=== PATIENT | female | born 1985 | race Caucasian/White ===

== ENCOUNTER 2017-11-04 07:42 | Outpatient (CLI) | payer OTHER ==
--- NOTE | 2017-11-04 12:08 | MRI Report ---
EXAM: MRI LUMBAR SPINE WITHOUT CONTRAST EXAM DATE: 11/04/2017 08:39 AM. CLINICAL HISTORY: 32-year-old woman with chronic low back pain and new right leg pain. COMPARISON: MRI on 07/24/2015. TECHNIQUE: Multiplanar, multisequence T1-weighted and fluid-sensitive sequences of the lumbar spine f rom T12 to S1 without contrast. Other: None. FINDINGS: Spinal Cord: The conus terminates at T12-L1. Cauda equina nerve roots are normal in appearance. Alignment: No significant spondylolisthesis or scoliosis. Bone Marrow: Five [id number] lumbar vertebral bodies are present. No gross fractures or bone les ions. No bone marrow edema. Mild Modic type II chronic degenerative endplate changes are present at L 5-S1, left side worse than right, slightly progressed compared to that 2014 exam. Disk Levels/Facets: T12-L1: Unremarkable. L1-L2: Unremarkable. L2-L3: Unremarkable. L3-L4: Unremarkable. L4-L5: There is disk desiccation without significant height loss. Small broad-based disk bulge result s in mild narrowing of the central canal, not significantly changed. Facet hypertrophy results in mil d narrowing of the neural foramina bilaterally, right side worse and left, unchanged. L5-S1: There is disk desiccation and moderate height loss. Broad-based right paracentral disk extrusi on results in moderate to severe narrowing of the right lateral recess, new compared to the 2014 exam . The passing right S1 nerve roots may be compressed. Disk bulge also results in moderate narrowing o f the left lateral recess, possibly compromising the passing left S1 nerve roots and progressed vignesh red to the prior exam. No significant narrowing of the central canal overall. Facet hypertrophy and d isk osteophyte complex in the subarticular spaces result in mild to moderate narrowing of the neural foramina bilaterally, not significantly changed. Musculature: Normal. No edema or fatty atrophy. Other: The partially visualized retroperitoneum is unremarkable. IMPRESSION: 1. Degenerative disk changes in the lower lumbar spine with mild chronic bony end plate changes at L5 -S1, slightly progressed compared to the 07/24/2015 exam. 2. L5-S1: Broad-based disk extrusion results and moderate to severe narrowing of the right lateral re cess, new compared to 2015 exam. The passing right S1 nerve roots decompressed. Disk bulge also resul ts in moderate narrowing of the left lateral recess, progressed. The passing left S1 nerve roots may be compromised. Mild to moderate narrowing of the neural foramina bilaterally, unchanged. 3. L4-L5: Mild narrowing of the central canal, unchanged. Mild narrowing of the neural foramina bilat erally, right side worse and left, unchanged. Comment: The following findings are so common in adults without low back pain that while we report th eir presence, they must be interpreted with caution and in the context of the clinical situation. (Re ada Barclay et al, Spine 2001) Prevalence of findings in patients without low back pain: Disk degeneration (any evidence): 92% Disk desiccation/T2 signal loss: 83% Disk height loss: 56% Disk bulge: 64% Disk protrusion: 32% Annular tear/high intensity zone: 38% [facility] Referring Provider Line: [phone] SITE ID: [id number]
== END 2017-11-04 07:43 | disposition home or self-care (01) ==
LOC: DI 07:42
PROVIDERS: ATTEND Family Medicine
DX: M51.27 Other intervertebral disc displacement, lumbosacral region (principal); M51.36 Other intervertebral disc degeneration, lumbar region; M51.37 Other intervertebral disc degeneration, lumbosacral region; M47.896 Other spondylosis, lumbar region; M47.897 Other spondylosis, lumbosacral region
CPT/HCPCS: 72148

== ENCOUNTER 2017-12-18 07:14 | Emergency (ER) | payer OTHER ==
[2017-12-18] MEDS ORDERED: oxyCODONE 5 MG TABLET PO STA (07:31)
[2017-12-18] MEDS ORDERED: LIDOCAINE PATCH 5% TOP STA (07:31)
[2017-12-18] MEDS ORDERED: DEXAMETHASONE 10 MG/ML VIAL PO STA (07:31)
--- NOTE | 2017-12-18 07:34 | ED Physician Documentation ---
History of Present Illness - Stated complaint Stated Complaint: SCIATIC NERVE PX - Chief complaint Chief Complaint: Back Pain - Additonal information Additional information: hx from pt 32 f [place] injured her back while lifting having R leg sciaitica had MRI 1-2 m ago shoing HNP with R S1 nerve root compression and no cauda equina has referral to spine neuro next week on naproxen and flexeril at home pain is intolerable right now no fever no CP AP no cough no SOA numb to bottom R foot not else where n weakness no incont denies preg Review of Systems Constitutional: denies: Fever Cardiac: denies: Chest pain / pressure Respiratory: denies: Dyspnea GI: denies: Abdominal Pain, Nausea, Vomiting : denies: Incontinent, Now EGA Musculoskeletal: reports: Back pain, Extremity pain Neurologic: reports: Numbness. denies: Focal weakness Immunocompromised: denies: Immunocompromised PD PAST MEDICAL HISTORY - Past Medical History Past Medical History: Yes Musculoskeletal: Other - Past Surgical History Past Surgical History: No - Present Medications Home Medications: Ambulatory Orders Medication Instructions Recorded Confirmed Cyclobenzaprine [Flexeril] 12/18/17 Lidocaine Patch 5% [Lidoderm Patch] 1 each TOP DAILY PRN #10 patch 12/18/17 Oxycodone HCl/Acetaminophen 1 each PO Q6HR PRN #6 tablet 12/18/17 [Percocet 5-325 mg Tablet] predniSONE [Deltasone] 20 mg PO [id number] #21 tab 12/18/17 - Allergies Allergies/Adverse Reactions: Allergies Allergy/AdvReac Type Severity Reaction Status Date / Time No Known Drug Allergies Allergy Verified 12/18/17 07:20 - Social History Does the pt smoke?: No Smoking Status: Never smoker Does the pt drink ETOH?: No Does the pt have substance abuse?: No PD ED PE NORMAL - Vitals Vital signs reviewed: Yes - General General: Other (appears to be in sig pain) - Neck Neck: Supple, no meningeal sign - Cardiac Cardiac: RRR - Respiratory Respiratory: No respiratory distress, Clear bilaterally - Abdomen Abdomen: Soft, Non tender, Other (no pulsatile mass) - Back Back: Other (TTP low L spine no redness erythema or swelling, limited ROM) - Derm Derm: Normal color - Extremities Extremities: Other (slight dec sensation base right foot, otherwise intact, specifically denies saddle anesthesia, foot dorsi plantar and great toe etx 5/5 hip flex and knee ext limited by pain but intact, no ankle clonus, diff to elcit patellar reflexes due to severity of pain and pt resisting leg movement) Results - Vitals Vitals: Vital Signs - 24 hr 12/18/17 07:17 Temperature 36.7 C Heart Rate 98 Respiratory 16 Rate Blood Pressure 121/98 H O2 Saturation 99 Oxygen O2 Source Room air Departure - Departure Disposition: 01 Home, Self Care Clinical Impression: Sciatica Qualifiers: Laterality: right Qualified Code(s): M54.31 - Sciatica, right side Condition: Good Instructions: ED Sciatica Follow-Up: LENNY Long [Provider Group] Prescriptions: Oxycodone HCl/Acetaminophen [Percocet 5-325 mg Tablet] 1 each PO Q6HR PRN #6 tablet PRN Reason: Severe Pain Lidocaine Patch 5% [Lidoderm Patch] 1 each TOP DAILY PRN #10 patch PRN Reason: Pain predniSONE [Deltasone] 20 mg PO [id number] #21 tab Comments: The steroid (prednsione) will decrease the inflammation of the nerve and help relieve some of the pain. Do not take your naproxen while on the prednsione You can take the flexeril One lidocaine patch per day can be applied to the most painful stop and left on for up to 12 hr The percocet is a strong narcotic and is only to be used until the steroids take effect - narcotics can be addicting even when used for a short period of time so please limit your use as much as possible. No driving while on percocet. Follow up with your command for duty status - I recommend off work today and desk duty only after that until cleared by the neuro spine doctor you have been referred to
[2017-12-18 08:28] VITALS: BP 122/75
== END 2017-12-18 08:28 | disposition home or self-care (01) ==
LOC: ED 07:14
DX: M54.31 Sciatica, right side (principal)
CPT/HCPCS: 99283; A9270

== ENCOUNTER 2018-01-03 18:17 | Emergency (ER) | payer OTHER ==
[2018-01-03] MEDS ORDERED: MORPHINE 10 MG/ML VIAL IVP STA ×2 (18:45→19:50)
[2018-01-03] MEDS ORDERED: DEXAMETHASONE 10 MG/ML VIAL IVP STA (18:45)
[2018-01-03] MEDS ORDERED: KETOROLAC 60 MG/2 ML VIAL IVP STA (18:45)
[2018-01-03] MEDS ORDERED: diazePAM INJ 5 MG/ML SYRINGE IVP STA ×2 (18:46→19:50)
--- NOTE | 2018-01-03 18:48 | ED Physician Documentation ---
PD HPI BACK PAIN - Stated complaint Stated Complaint: R LEG PX - Chief complaint Chief Complaint: Back Pain - History obtained from History obtained from: Patient, Family - History of Present Illness Timing - onset: Chronic Timing - duration: Years (worse for past 3 days) Pain level max: 10 Pain level now: 10 Location: Lower, Right, Left Quality: Pain, Spasm, Sharp, Aching, Dull, Similar to prior episodes Associated symptoms: Numbness (chronic to plantar aspect of R foot.). No: Fever , Weakness, Incontinent of urine, Unable to urinate, Hematuria, Incontinent of stool, Other Improves with: Rest Worsened by: Movement, Twisting Contributing factors: Lifting (states herniated disc, had MRI 2 months ago, saw spine surgeon 1 week ago and is being referred for surgery.) Similar symptoms before: Diagnosis (sciatica) Review of Systems Constitutional: denies: Fever, Chills Nose: denies: Rhinorrhea / runny nose, Congestion Cardiac: denies: Chest pain / pressure Respiratory: denies: Cough GI: denies: Abdominal Pain, Nausea, Vomiting, Diarrhea : denies: Dysuria, Frequency, Hesitancy, Now EGA Musculoskeletal: denies: Neck pain Neurologic: denies: Focal weakness PD PAST MEDICAL HISTORY - Past Medical History Past Medical History: Yes Musculoskeletal: Chronic back pain, Other Other Past Medical History: L5-S1 bulging disc - Past Surgical History Past Surgical History: No - Present Medications Home Medications: Ambulatory Orders Medication Instructions Recorded Confirmed Cyclobenzaprine [Flexeril] 12/18/17 Lidocaine Patch 5% [Lidoderm Patch] 1 each TOP DAILY PRN #10 patch 12/18/17 Oxycodone HCl/Acetaminophen 1 each PO Q6HR PRN #6 tablet 12/18/17 [Percocet 5-325 mg Tablet] Diclofenac Epolamine [Flector] 1 each TD Q12H PRN #20 adh..patch 01/03/18 Gabapentin 900 mg PO TID 01/03/18 01/03/18 Methylprednisolone [Medrol] 4 mg PO DAILY #1 tab.ds.pk 01/03/18 Oxycodone HCl 10 mg PO Q6H PRN #14 tablet 01/03/18 diazePAM [Valium] 5 - 10 mg PO TID PRN #15 tablet 01/03/18 - Allergies Allergies/Adverse Reactions: Allergies Allergy/AdvReac Type Severity Reaction Status Date / Time No Known Drug Allergies Allergy Verified 01/03/18 18:23 - Social History Does the pt smoke?: No Smoking Status: Never smoker Does the pt drink ETOH?: No Does the pt have substance abuse?: No - Immunizations Immunizations are current?: Yes PD ED PE NORMAL - Vitals Vital signs reviewed: Yes - General General: Alert and oriented X 3, Well developed/nourished, Other (appears in significant pain. crying) - HEENT HEENT: PERRL, Moist mucous membranes - Neck Neck: Supple, no meningeal sign - Cardiac Cardiac: RRR, Strong equal pulses - Respiratory Respiratory: No respiratory distress, Clear bilaterally - Abdomen Abdomen: Soft, Non tender, Non distended - Back Back: No spinal TTP, Other (paraspinal spasm, low lumbar. 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 Normal great toe extension bilaterally). No: No sensory deficit (decreased sensation to the plantar aspect of the R foot. ) Results - Vitals Vitals: Vital Signs - 24 hr 01/03/18 01/03/18 01/03/18 18:21 19:17 19:47 Temperature 37.1 C Heart Rate 150 H 96 115 H Respiratory 18 16 20 Rate Blood Pressure 150/116 H 117/78 120/82 H O2 Saturation 92 96 94 01/03/18 01/03/18 01/03/18 19:59 20:17 20:48 Temperature 37.2 C Heart Rate 100 99 103 H Respiratory 16 16 16 Rate Blood Pressure 117/85 H 112/78 116/95 H O2 Saturation 97 92 97 01/03/18 01/03/18 01/03/18 21:18 21:26 21:41 Temperature Heart Rate 106 H 110 H 116 H Respiratory 14 18 17 Rate Blood Pressure 125/87 H 144/95 H 135/100 H O2 Saturation 96 99 95 Oxygen O2 Source Room air PD MEDICAL DECISION MAKING - ED course Complexity details: reviewed old records, reviewed results, re-evaluated patient , considered differential, d/w patient, d/w family ED course: Patient is a 32-year-old female who presents to the emergency department with acute on chronic low back pain, states she is awaiting surgery for her back. States that she was on Percocet but is now running out. States it was not helping much anyway. States now unable to stand. She does have some numbness to the plantar aspect of the right foot which is chronic and unchanged. No evidence of cauda equina. No evidence of acute fracture. [place] better with morphine, Toradol, Valium and dexamethasone. However still had pain when she went to stand up, therefore low dose ketamine was used which resolved her pain and allowed her to walk. We will place her on a steroid taper for home along with nonsteroidal anti-inflammatory, Valium and oxycodone. We will have her follow-up with her doctor for further medications. Her mother is going to be staying with her for the next several days and will monitor her medications. Patient and family counseled regarding signs and symptoms for which I believe and urgent re-evaluation would be necessary. Patient with good understanding of and agreement to plan and is comfortable going home at this time This document was made in part using voice recognition software. While efforts are made to proofread this document, sound alike and grammatical errors may occur. Departure - Departure Disposition: Home, Self Care Clinical Impression: Sciatica Qualifiers: Laterality: right Qualified Code(s): M54.31 - Sciatica, right side Condition: Good Instructions: ED Sciatica Follow-Up: ESTUARDO KHANNA MD [Primary Care Provider] - Within 1 week Prescriptions: diazePAM [Valium] 5 - 10 mg PO TID PRN #15 tablet PRN Reason: Spasms Diclofenac Epolamine [Flector] 1 each TD Q12H PRN #20 adh..patch PRN Reason: back pain Methylprednisolone [Medrol] 4 mg PO DAILY #1 tab.ds.pk Oxycodone HCl 10 mg PO Q6H PRN #14 tablet PRN Reason: back pain Comments: Return if you worsen. This should improve over the next few days. Follow up with your doctor for further care. Do not drink alcohol or drive while on narcotic pain medicine. Note that many narcotic pain relievers also contain tylenol/acetaminophen. Please ensure that your total dose of acetaminophen from all sources does not exceed 3 grams (3000mg) per day. You may constipated on this medication, take a stool softener such as "Colace" twice a day while you are on it. Also recommend a ayxt-bul-eagkjtd laxative such as senna or MiraLAX any day that you do not have a bowel movement. If you received narcotic pain medication in the emergency department, do not drive or operate machinery for the next 24 hours. Forms: Activity restrictions Discharge Date/Time: 01/03/18 21:41
[2018-01-03] MEDS ORDERED: KETAMINE 500 MG/10 ML VIAL IVP STA (20:55)
[2018-01-03 21:42] VITALS: BP 135/100
== END 2018-01-03 21:41 | disposition home or self-care (01) ==
LOC: ED 18:17
DX: M54.31 Sciatica, right side (principal)
CPT/HCPCS: 96374; 96375; 96376; 99284

== ENCOUNTER 2018-01-04 11:50 | Outpatient (CLI) | payer OTHER | END 2018-01-04 11:51 | disposition critical access hospital (66) | LOC: EMS 11:50 | PROVIDERS: ATTEND Surgery | DX: M54.5 Low back pain (principal) | CPT/HCPCS: A0425; A0429 ==

== ENCOUNTER 2018-01-04 12:14 | Emergency (ER) | payer OTHER ==
[2018-01-04] MEDS ORDERED: SODIUM CHLORIDE 0.9% 1,000 ML IV ONE ×2 (13:01→14:32)
[2018-01-04] MEDS ORDERED: ONDANSETRON 4 MG/2 ML VIAL IVP STA (13:01)
[2018-01-04] MEDS ORDERED: HYDROmorphone 1 MG/ML CARPUJECT IVP STA ×2 (13:01→14:32)
--- NOTE | 2018-01-04 13:04 | ED Physician Documentation ---
PD HPI BACK PAIN - Stated complaint Stated Complaint: back px - Chief complaint Chief Complaint: Back Pain - History obtained from History obtained from: Patient - History of Present Illness Timing - onset: How many days ago (5) Timing - duration: Days (5) Timing - details: Gradual onset, Still present, Waxing and waning Location: Lower, Right Quality: Pain, Spasm, Sharp, Similar to prior episodes Associated symptoms: No: Fever, Weakness, Numbness, Incontinent of urine, Unable to urinate, Hematuria, Incontinent of stool Improves with: Rest, Position, Meds Worsened by: Movement Similar symptoms before: Diagnosis (lumbar disc rupture) Recently seen: Emergency Dept - Additional information Additional information: 32-year-old female with a history of chronic back pain and sciatica has had an exacerbation of her symptoms with pain down the right leg. She is scheduled to get surgery after having an MRI done last month. She was seen in the emergency department yesterday for pain control and required morphine and Valium as well as ketamine for control of pain. She went home was able to get into bed and to sleep and on awakening today she has return of the pain is unable to get control she returns to the emergency department. Review of Systems Constitutional: denies: Fever, Chills, Myalgias Eyes: denies: Decreased vision Ears: denies: Ear pain Nose: denies: Rhinorrhea / runny nose, Congestion Throat: denies: Sore throat Cardiac: denies: Chest pain / pressure Respiratory: denies: Dyspnea, Cough GI: reports: Nausea. denies: Abdominal Pain, Vomiting, Constipation, Diarrhea : denies: Dysuria, Frequency Skin: denies: Rash Musculoskeletal: reports: Back pain, Extremity pain. denies: Neck pain PD PAST MEDICAL HISTORY - Past Medical History Past Medical History: Yes Musculoskeletal: Chronic back pain, Other - Past Surgical History Past Surgical History: Yes - Present Medications Home Medications: Ambulatory Orders Medication Instructions Recorded Confirmed Cyclobenzaprine [Flexeril] 12/18/17 Lidocaine Patch 5% [Lidoderm Patch] 1 each TOP DAILY PRN #10 patch 12/18/17 Oxycodone HCl/Acetaminophen 1 each PO Q6HR PRN #6 tablet 12/18/17 [Percocet 5-325 mg Tablet] Diclofenac Epolamine [Flector] 1 each TD Q12H PRN #20 adh..patch 01/03/18 Gabapentin 900 mg PO TID 01/03/18 01/03/18 Methylprednisolone [Medrol] 4 mg PO DAILY #1 tab.ds.pk 01/03/18 Oxycodone HCl 10 mg PO Q6H PRN #14 tablet 01/03/18 diazePAM [Valium] 5 - 10 mg PO TID PRN #15 tablet 01/03/18 - Allergies Allergies/Adverse Reactions: Allergies Allergy/AdvReac Type Severity Reaction Status Date / Time No Known Drug Allergies Allergy Verified 01/03/18 18:23 - Social History Does the pt smoke?: No Smoking Status: Never smoker Does the pt drink ETOH?: No Does the pt have substance abuse?: No - Immunizations Immunizations are current?: Yes - POLST Patient has POLST: No PD ED PE NORMAL - Vitals Vital signs reviewed: Yes (tachy and hypertensive) - General General: Alert and oriented X 3, Well developed/nourished, Other (moaning in pain and not moving laying supine ) - HEENT HEENT: Atraumatic, PERRL, EOMI - Neck Neck: Supple, no meningeal sign - Respiratory Respiratory: No respiratory distress - Back Back: No CVA TTP, Other (tenderness lower lumbar area) - Derm Derm: Normal color, Warm and dry, No rash - Extremities Extremities: No deformity, No edema - Neuro Neuro: No motor deficit, No sensory deficit Eye Opening: Spontaneous Motor: Obeys Commands Verbal: Oriented GCS Score: 15 - Psych Psych: Normal mood, Normal affect Results - Vitals Vitals: Vital Signs - 24 hr 01/04/18 01/04/18 12:15 14:30 Temperature 37.1 C 37.0 C Heart Rate 103 H 94 Respiratory 20 18 Rate Blood Pressure 130/81 H 119/75 O2 Saturation 95 98 Oxygen O2 Source Room air - Labs Labs: Laboratory Tests 01/04/18 01/04/18 13:23 13:23 WBC 10.9 H RBC 4.24 Hgb 12.8 Hct 37.2 MCV 87.8 MCH 30.3 MCHC 34.5 RDW 12.9 Plt Count 325 MPV 7.1 L Neut # 9.1 H Lymph # 1.[address] [place] # 0.6 Eos # 0.0 Baso # 0.1 Absolute Nucleated RBC 0.00 Nucleated RBC % 0.0 Sodium 133 L Potassium 3.7 Chloride 103 Carbon Dioxide 22 Anion Gap 8.0 BUN 12 Creatinine 0.4 Estimated GFR (MDRD) 185 Glucose 102 H Calcium 8.7 Total Bilirubin 0.4 AST 17 ALT 22 Alkaline Phosphatase 38 L Total Protein 6.5 L Albumin 4.0 Globulin 2.5 Albumin/Globulin Ratio 1.6 Lipase 19 L Procedures - IVC sono (time) 1300 Bedside IVC sono: IVC measures (cm) (0.78), IVC collapsed c insp (cm) (complete) , Significant dehydration PD MEDICAL DECISION MAKING - ED course Complexity details: reviewed results, re-evaluated patient, considered differential, d/w patient ED course: 32-year-old female with sciatica returns to the emergency department for reevaluation with pain out of control. She is found to be significantly dehydrated and saline is begun as well as intravenous Dilaudid and Zofran. She has been seen by the surgeon in [place] and surgery has been recommended. Her primary Dr. Carrillo at [facility] is consulted by phone and their team will work on finding out what needs to be done to approve surgery for her in [place]. She requires a second dose of dilaudid. Departure - Departure Disposition: 01 Home, Self Care Clinical Impression: Dehydration Sciatica Qualifiers: Laterality: right Qualified Code(s): M54.31 - Sciatica, right side Condition: Stable Instructions: ED Spasm Back No Trauma, ED Dehydration, ED Sciatica Follow-Up: ESTUARDO KHANNA MD [Primary Care Provider] - Comments: Today we found you were significantly dehydrated and dehydration can contribute to sustained muscle contraction. In addition to your pain medications it is important to hydrate.
[2018-01-04 13:41] LABS: BASOPHILS # (AUTO) 0.1 10^3/uL (0.0-0.1); BASOPHILS % (AUTO) 0.6 %; EOSINOPHILS % (AUTO) 0.1 %; HGB - HEMOGLOBIN 12.8 g/dL (12.0-16.0); LYMPHOCYTES # (AUTO) 1.2 10^3/uL (1.5-3.5); LYMPHOCYTES % (AUTO) 10.7 %; MEAN CORPUSCULAR HEMOGLOBIN 30.3 pg (27.0-31.0); MEAN CORPUSCULAR HGB CONC 34.5 g/dL (32.0-36.0); MEAN CORPUSCULAR VOLUME 87.8 fL (81.0-99.0); MEAN PLATELET VOLUME 7.1 fL (7.9-10.8); MONOCYTES # (AUTO) 0.6 10^3/uL (0.0-1.0); MONOCYTES % (AUTO) 5.1 %; NEUTROPHILS # (AUTO) 9.1 10^3/uL (1.5-6.6); NEUTROPHILS % (AUTO) 83.5 %; PLT - PLATELET COUNT 325 10^3/uL (130-450); RED BLOOD COUNT 4.24 10^6/uL (4.20-5.40); RED CELL DISTRIBUTION WIDTH 12.9 % (12.0-15.0); WHITE BLOOD COUNT 10.9 x10^3/uL (4.8-10.8)
[2018-01-04 13:56] LABS: ALBUMIN/GLOBULIN RATIO 1.6 (1.0-2.2); BILIRUBIN,TOTAL 0.4 mg/dL (0.2-1.0); CALCIUM 8.7 mg/dL (8.5-10.3); CREATININE 0.4 mg/dL (0.4-1.0); TOTAL PROTEIN 6.5 g/dL (6.7-8.2)
[2018-01-04 14:31] VITALS: BP 119/75
[2018-01-04] MEDS ORDERED: DEXAMETHASONE 10 MG/ML VIAL IVP STA (14:32)
[2018-01-04] MEDS ORDERED: HYDROmorphone 2 MG/ML VIAL IVP STA (14:47)
== END 2018-01-04 15:50 | disposition home or self-care (01) ==
LOC: EDUNIT# → ED 12:14
DX: E86.0 Dehydration (principal); M54.31 Sciatica, right side; G89.29 Other chronic pain
CPT/HCPCS: 36415; 80053; 83690; 85025; 96361; 96374; 96375; 96376; 99283; 99284; J1170

== ENCOUNTER 2021-03-05 00:16 | Outpatient (CLI) | payer OTHER | END 2021-03-05 00:17 | disposition critical access hospital (66) | LOC: EMS 00:16 | DX: Z04.6 Encounter for general psychiatric examination, requested by authority (principal); R45.851 Suicidal ideations | CPT/HCPCS: A0425; A0429 ==

== ENCOUNTER 2021-03-05 00:36 | Emergency (ER) | payer OTHER ==
[2021-03-05 01:26] LABS: BASOPHILS # (AUTO) 0.1 10^3/uL (0.0-0.1); BASOPHILS % (AUTO) 0.7 %; EOSINOPHILS % (AUTO) 0.2 %; HCT - HEMATOCRIT 42.9 % (37.0-47.0); HGB - HEMOGLOBIN 14.1 g/dL (12.0-16.0); LYMPHOCYTES # (AUTO) 2.9 10^3/uL (1.5-3.5); LYMPHOCYTES % (AUTO) 26.6 %; MEAN CORPUSCULAR HEMOGLOBIN 32.4 pg (27.0-31.0); MEAN CORPUSCULAR HGB CONC 32.9 g/dL (32.0-36.0); MEAN CORPUSCULAR VOLUME 98.6 fL (81.0-99.0); MEAN PLATELET VOLUME 8.2 fL (7.9-10.8); MONOCYTES # (AUTO) 0.5 10^3/uL (0.0-1.0); MONOCYTES % (AUTO) 4.9 %; NEUTROPHILS # (AUTO) 7.2 10^3/uL (1.5-6.6); NEUTROPHILS % (AUTO) 66.9 %; PLT - PLATELET COUNT 419 10^3/uL (130-450); RED BLOOD COUNT 4.35 10^6/uL (4.20-5.40); WHITE BLOOD COUNT 10.8 x10^3/uL (4.8-10.8)
[2021-03-05 01:41] LABS: ACETAMINOPHEN < 10 ug/mL (10-30); ALBUMIN 4.7 g/dL (3.2-5.5); ALBUMIN/GLOBULIN RATIO 1.6 (1.0-2.2); ALKALINE PHOSPHATASE 73 IU/L (42-121); ALT ALANINE AMINOTRANSFERASE 35 IU/L (10-60); AST ASPARTATE AMINOTRANSFERASE 43 IU/L (10-42); BILIRUBIN,TOTAL 0.5 mg/dL (0.2-1.0); BUN - BLOOD UREA NITROGEN 16 mg/dL (6-20); CALCIUM 8.2 mg/dL (8.5-10.3); CARBON DIOXIDE - CO2 23 mmol/L (21-32); CHLORIDE 99 mmol/L (101-111); CREATININE 0.7 mg/dL (0.4-1.0); ETOH - ETHANOL 267.6 mg/dL; GFR - MDRD 95 (>89); GLUCOSE 69 mg/dL (70-100); LIPASE 23 U/L (22-51); POTASSIUM 3.8 mmol/L (3.5-5.0); SALICYLATE < 6.0 mg/dL; SODIUM 139 mmol/L (135-145); TOTAL PROTEIN 7.6 g/dL (6.7-8.2)
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
[2021-03-05 11:26] LABS: MUDS CUTOFF CONCENTRATIONS CUTOFF CONC BELOW:
[2021-03-05 11:30] LABS: BILIRUBIN,URINE NEGATIVE (NEGATIVE); CLARITY,URINE CLEAR (CLEAR); GLUCOSE, URINE (UA) NEGATIVE (NEGATIVE); KETONES,URINE (UA) 15 mg/dL (NEGATIVE); LEUKOCYTE ESTERASE, URINE NEGATIVE (NEGATIVE); NITRITE,URINE NEGATIVE (NEGATIVE); OCCULT BLOOD,URINE TRACE-INTA (NEGATIVE); PH,URINE 5.5 PH (5.0-7.5); PROTEIN,URINE NEGATIVE (NEGATIVE); UROBILINOGEN,URINE 0.2 (NORMAL) E.U./dL (NORMAL)
[2021-03-05 11:31] LABS: HCG UR QUAL NEGATIVE
[2021-03-05 11:50] LABS: AMPHETAMINE SCREEN,URINE NEGATIVE (NEGATIVE); BARBITURATE SCREEN,UR NEGATIVE (NEGATIVE); BENZODIAZEPINES SCREEN, URINE POSITIVE (NEGATIVE); COCAINE SCREEN URINE NEGATIVE (NEGATIVE); METHADONE SCREEN, URINE NEGATIVE (NEGATIVE); METHAMPHETAMINES SCREEN, URINE NEGATIVE (NEGATIVE); OPIATE SCREEN, URINE NEGATIVE (NEGATIVE); OXYCODONE SCREEN, URINE NEGATIVE (NEGATIVE); PROPOXYPHENE SCREEN, URINE NEGATIVE (NEGATIVE); THC CANNABINOID SCREEN, URINE NEGATIVE (NEGATIVE); TRICYCLIC ANTIDEPRESSANT,URINE NEGATIVE (NEGATIVE)
--- NOTE | 2021-03-05 12:16 | ED Physician Documentation ---
ED Addendum - Addendum Addendum: The patient has been interacting well this morning. She has been pleasant and cooperative. Social work talked with her as well as her command. 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 They will arrange counseling as well. The patient is not suicidal at this point. Social work feels she is cleared for discharge and safe. Disposition the patient is discharged in stable condition. Diagnoses: 1. Acute reactive depression 2. Suicidal ideation 3. Alcohol intoxication 03/05/21 12:13
[2021-03-05 12:40] VITALS: BP 102/71
== END 2021-03-05 12:46 | disposition home or self-care (01) ==
LOC: EDUNIT# → ED 00:36
DX: R45.851 Suicidal ideations (principal); F32.9 Major depressive disorder, single episode, unspecified; F10.920 Alcohol use, unspecified with intoxication, uncomplicated
CPT/HCPCS: 36415; 80053; 80306; 80307; 80320; 80329; 81001; 81003; 81025; 83690; 84443; 85025; 87086; 99283

== ENCOUNTER 2021-05-16 15:52 | Emergency (ER) | payer OTHER ==
[2021-05-16 15:59] VITALS: BP 98/75
--- NOTE | 2021-05-16 16:36 | ED Physician Documentation ---
PD HPI LOWER EXT INJURY - Stated complaint Stated Complaint: LT CALF AND ANKLE INJURIES - Chief complaint Chief Complaint: Ext Problem - History obtained from History obtained from: Patient - History of Present Illness PD HPI LOW EXT INJURY LOCATION: Left, Lower leg Type of injury: Other (working out) Where injury occurred: Other (GYM) Timing - onset: How many months ago (1) Timing - duration: Months (1) Timing - details: Abrupt onset, Still present Improved by: Rest, Immobilization Worsened by: Moving, Palpating Associated symptoms: Swelling, Discolored Contributing factors: No: Anticoagulated Similar symptoms before: Has not had sx before Recently seen: Clinic - Additional information Additional information: 36-year-old female had an injury to her left calf about 1 month ago with a strain while she was working out. About 1 week ago she began to develop some swelling in that leg and she has had increased pain and noted ecchymosis as well and she has had swelling down into her ankle and her ankle does not hurt. She does not have any pain to her knee. She went into the clinic vascular come to the emergency department for evaluation for deep vein thrombosis. Review of Systems Constitutional: denies: Fever Ears: denies: Ear pain Nose: denies: Congestion Respiratory: denies: Cough GI: denies: Vomiting Musculoskeletal: reports: Extremity pain, Extremity swelling Neurologic: denies: Generalized weakness, Focal weakness, Numbness PD PAST MEDICAL HISTORY - Past Medical History Psych: Depression, Anxiety Musculoskeletal: Chronic back pain, Other - Past Surgical History Past Surgical History: Yes - Present Medications Home Medications: Ambulatory Orders Medication Instructions Recorded Confirmed Gabapentin 900 mg PO TID 01/03/18 01/03/18 Citalopram [CeleXA] 10 mg PO DAILY 03/05/21 03/05/21 clonazePAM [Clonazepam] 1 mg PO BID 03/05/21 03/05/21 - Allergies Allergies/Adverse Reactions: Allergies Allergy/AdvReac Type Severity Reaction Status Date / Time No Known Drug Allergies Allergy Verified 05/16/21 15:56 - Social History Does the pt smoke?: No Smoking Status: Never smoker Does the pt drink ETOH?: No Does the pt have substance abuse?: No - Immunizations Immunizations are current?: Yes - POLST Patient has POLST: No PD ED PE NORMAL - Vitals Vital signs reviewed: Yes (Normal) - General General: Alert and oriented X 3, No acute distress, Well developed/nourished - HEENT HEENT: Atraumatic, PERRL, EOMI - Respiratory Respiratory: No respiratory distress - Derm Derm: Normal color, Warm and dry, No rash - Extremities Extremities: No deformity, Other (There is swelling and ecchymosis to the left medial foot as well as less to the lateral aspect of the foot and some ecchymosis over the gastrocs itself. No swelling to the popliteal fossa no pain posterior farther up.) Results - Vitals Vitals: Vital Signs - 24 hr 05/16/21 15:56 Temperature 36.6 C Heart Rate 96 Respiratory 16 Rate Blood Pressure 98/75 O2 Saturation 98 Oxygen O2 Source Room air - Rads (name of study) duplex Radiology: Prelim report reviewed (Impression: 1. No deep vein thrombosis. 2. Complex echogenicity within the distal lower extremity possibly related to hematoma. If clinically appropriate, abscess cannot be definitely excluded.), EMP read indepedently, See rad report PD MEDICAL DECISION MAKING - ED course Complexity details: reviewed old records, reviewed results, re-evaluated patient, considered differential, d/w patient ED course: 36-year-old female with ecchymosis and swelling to her left lower extremity remote from an injury about 1 month ago. I suspect this really is related to this injury previously and bleeding and tracking of the blood under the skin related to a tear of the gastrocs. The patient has been sent to the emergency department by her primary care for evaluation for deep vein thrombosis and a duplex ultrasound is ordered. Duplex is negative except for hematoma consistent with a tear of the gastrocs. She has some blood tracking. I have recommended compression stockings heat and aspirin and decreased activity. Departure - Departure Disposition: 01 Home, Self Care Clinical Impression: Hematoma of left lower extremity Qualifiers: Encounter type: initial encounter Qualified Code(s): S80.12XA - Contusion of left lower leg, initial encounter Condition: Stable Instructions: ED Hematoma Follow-Up: Colette Oliveros MD [Primary Care Provider] - Comments: Today it appears you have a hematoma to the inside part of your left calf. This can take as long as 2 months to resolve. Wear compression stockings if you are on your feet a long time and avoid excessive activity. (important to continue to move)
--- NOTE | 2021-05-16 18:53 | Ultrasound Report ---
PROCEDURE: Duplex Ext Veins Left INDICATIONS: swelling pain persistent TECHNIQUE: Real-time imaging, as well as color and pulse Doppler interrogation, were performed of the lower extr emity deep veins from the inguinal ligament to the popliteal fossa. COMPARISON: None. FINDINGS: The deep veins are normally compressible, and free of intraluminal thrombus. Color and pu lse Doppler demonstrate normal phasic intraluminal flow. There is normal augmentation response to di stal compression maneuver. Within the medial distal aspect of the left lower extremity there is a 9.1 x 0.7 x 3.0 cm focus of in creased echogenicity. IMPRESSION: 1. No deep venous thrombosis. 2. Complex focus of echogenicity within the distal lower extremity possibly related to hematoma. If c linically appropriate, abscess cannot be definitively excluded. Reviewed by: Yamileth Doll MD on 05/16/2021 6:52 PM PDT Approved by: Yamileth Doll MD on 05/16/2021 6:52 PM PDT Station ID: [id number]
== END 2021-05-16 19:07 | disposition home or self-care (01) ==
LOC: ED 15:52
DX: S80.12XA Contusion of left lower leg, initial encounter (principal); X58.XXXA Exposure to other specified factors, initial encounter; Y93.B9 Activity, other involving muscle strengthening exercises; Y92.39 Other specified sports and athletic area as the place of occurrence of the external cause
CPT/HCPCS: 99282; 99284

== ENCOUNTER 2021-05-27 08:24 | Outpatient (CLI) | payer OTHER | END 2021-05-27 08:25 | disposition critical access hospital (66) | LOC: EMS 08:24 | DX: R46.4 Slowness and poor responsiveness (principal); R41.82 Altered mental status, unspecified; R10.9 Unspecified abdominal pain; M54.2 Cervicalgia; M54.5 Low back pain; M25.512 Pain in left shoulder; V53.5XXA Driver of pick-up truck or van injured in collision with car, pick-up truck or van in traffic accident, initial encounter; Y92.413 State road as the place of occurrence of the external cause | CPT/HCPCS: A0425; A0427 ==

== ENCOUNTER 2021-05-27 09:14 | Observation (INO) | payer OTHER ==
[2021-05-27 09:28] LABS: BASOPHILS % (AUTO) 0.3 %; EOSINOPHILS # (AUTO) 0.1 10^3/uL (0.0-0.7); EOSINOPHILS % (AUTO) 0.7 %; HCT - HEMATOCRIT 45.1 % (37.0-47.0); HGB - HEMOGLOBIN 14.6 g/dL (12.0-16.0); LYMPHOCYTES # (AUTO) 2.7 10^3/uL (1.5-3.5); LYMPHOCYTES % (AUTO) 23.8 %; MEAN CORPUSCULAR HEMOGLOBIN 30.9 pg (27.0-31.0); MEAN CORPUSCULAR HGB CONC 32.4 g/dL (32.0-36.0); MEAN CORPUSCULAR VOLUME 95.3 fL (81.0-99.0); MEAN PLATELET VOLUME 8.5 fL (7.9-10.8); MONOCYTES # (AUTO) 0.5 10^3/uL (0.0-1.0); MONOCYTES % (AUTO) 4.4 %; NEUTROPHILS % (AUTO) 69.9 %; PLT - PLATELET COUNT 350 10^3/uL (130-450); RED BLOOD COUNT 4.73 10^6/uL (4.20-5.40); WHITE BLOOD COUNT 11.5 x10^3/uL (4.8-10.8)
[2021-05-27] MEDS ORDERED: IOPAMIDOL-300 100 ML VIAL ONE (09:28)
[2021-05-27 09:45] LABS: INR 0.9 (0.8-1.2)
[2021-05-27] MEDS ORDERED: HYDROmorphone 1 MG/ML CARPUJECT IVP STA ×2 (09:48→10:46)
[2021-05-27 09:49] LABS: ALBUMIN 4.6 g/dL (3.2-5.5); ALBUMIN/GLOBULIN RATIO 1.6 (1.0-2.2); BILIRUBIN,TOTAL 0.5 mg/dL (0.2-1.0); CALCIUM 8.3 mg/dL (8.5-10.3); CREATININE 0.7 mg/dL (0.4-1.0); POTASSIUM 3.9 mmol/L (3.5-5.0); TOTAL PROTEIN 7.4 g/dL (6.7-8.2)
[2021-05-27] MEDS ORDERED: HYDROmorphone 1 MG/ML CARPUJECT ONE (09:49)
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
[2021-05-27] MEDS ORDERED: LORazepam 2 MG/ML VIAL IVP STA (10:04)
[2021-05-27] MEDS ORDERED: SODIUM CHLORIDE 0.9% 1,000 ML IV STA (10:04)
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
[2021-05-27] MEDS ORDERED: LORazepam 2 MG/ML VIAL ONE (10:10)
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
[2021-05-27] MEDS ORDERED: IOPAMIDOL-300 100 ML VIAL IVP ONE (12:14)
[2021-05-27] MEDS ORDERED: SODIUM CHLORIDE FLUSH 0.9% 10 ML SYRINGE IVP PRN (12:27)
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
[2021-05-27] MEDS ORDERED: ACETAMINOPHEN 1,000 MG/100 ML 100 ML IV PRN (12:33)
[2021-05-27 13:11] LABS: MUDS CUTOFF CONCENTRATIONS CUTOFF CONC BELOW:
[2021-05-27 13:14] LABS: BILIRUBIN,URINE NEGATIVE (NEGATIVE); GLUCOSE, URINE (UA) NEGATIVE (NEGATIVE); KETONES,URINE (UA) TRACE mg/dL (NEGATIVE); LEUKOCYTE ESTERASE, URINE NEGATIVE (NEGATIVE); NITRITE,URINE NEGATIVE (NEGATIVE); OCCULT BLOOD,URINE MODERATE (NEGATIVE); PROTEIN,URINE NEGATIVE (NEGATIVE); UROBILINOGEN,URINE 0.2 (NORMAL) E.U./dL (NORMAL)
[2021-05-27 13:17] LABS: CLARITY,URINE CLEAR (CLEAR)
[2021-05-27 13:29] LABS: OPIATE SCREEN, URINE POSITIVE (NEGATIVE); THC CANNABINOID SCREEN, URINE NEGATIVE (NEGATIVE)
[2021-05-27 13:30] LABS: AMPHETAMINE SCREEN,URINE NEGATIVE (NEGATIVE); BARBITURATE SCREEN,UR NEGATIVE (NEGATIVE); BENZODIAZEPINES SCREEN, URINE NEGATIVE (NEGATIVE); COCAINE SCREEN URINE NEGATIVE (NEGATIVE); METHADONE SCREEN, URINE NEGATIVE (NEGATIVE); METHAMPHETAMINES SCREEN, URINE NEGATIVE (NEGATIVE); OXYCODONE SCREEN, URINE NEGATIVE (NEGATIVE); PROPOXYPHENE SCREEN, URINE NEGATIVE (NEGATIVE); TRICYCLIC ANTIDEPRESSANT,URINE NEGATIVE (NEGATIVE)
[2021-05-27 13:35] LABS: B. PARAPERTUSSIS- RESP PCR PAN NOT DETECTED; B. PERTUSSIS- RESP PCR PANEL NOT DETECTED; C. PNEUMONIAE- RESP PCR PANEL NOT DETECTED; CORONAVIRUS 229E-RESP PCR NOT DETECTED; CORONAVIRUS HKU1-RESP PCR NOT DETECTED; CORONAVIRUS NL63-RESP PCR NOT DETECTED; CORONAVIRUS OC43-RESP PCR NOT DETECTED; HUMAN METAPNEUMOVIRUS NOT DETECTED; INFLUENZA A- RESP PCR PANEL NOT DETECTED; INFLUENZA B - RESP PCR PANEL NOT DETECTED; M. PNEUMONIAE- RESP PCR PANEL NOT DETECTED; PARAINFLUENZA VIRUS 1 NOT DETECTED; PARAINFLUENZA VIRUS 2 NOT DETECTED; PARAINFLUENZA VIRUS 3 NOT DETECTED; PARAINFLUENZA VIRUS 4 NOT DETECTED; RHINOVIRUS/ENTEROVIRUS NOT DETECTED; RSV- RESP PCR PANEL NOT DETECTED; SARS-CoV-2 -RESP PCR PANEL NOT DETECTED
[2021-05-27 13:40] LABS: BACTERIA,URINE Few /HPF (None Seen); RBC,URINE 0-5 /HPF (0-5); SQUAMOUS EPITHELIAL CELL,UR FEW Squamous (<= Few); WBC,URINE 0-3 /HPF (0-5)
[2021-05-27] MEDS: LACTATED RINGERS 1,000 ML IV SCH (13:53)
[2021-05-27] MEDS: HYDROmorphone 1 MG/ML CARPUJECT IVP PRN ×3 (14:02→23:40)
[2021-05-27] MEDS: LORazepam 2 MG/ML VIAL IVP PRN ×2 (15:39→20:03)
[2021-05-27] MEDS: ONDANSETRON 4 MG/2 ML VIAL IVP PRN (15:39)
--- NOTE | 2021-05-27 16:53 | PHARMACY PROGRESS NOTE ---
- Best Possible Medication History Admit Date and Time: 05/27/21 1227 Processed by: Pharmacy Medication History completed: Yes Patient Interview: Completed (PATIENT ABLE TO CONFIRM HOME MEDICATIONS) As the person ultimately responsible for medication therapy, providers are able to order a medication from an existing home medication list in [facility] via the "Reconcile Routine" prior to Confirmation of that medication by community support worker. Such practice is discouraged except when the physician, in their clinical judgment, deems that a medical need exists for a medication without regard to previous use.
[2021-05-27] MEDS: PANTOPRAZOLE 40 MG TABLET PO SCH (17:30)
[2021-05-27] MEDS: oxyCODONE 5 MG TABLET PO PRN ×2 (17:30→21:39)
[2021-05-27] MEDS: SODIUM CHLORIDE FLUSH 0.9% 10 ML SYRINGE IVP SCH (17:32)
[2021-05-27] MEDS ORDERED: PROPRANOLOL 10 MG TABLET PO PRN (18:08)
[2021-05-27] MEDS ORDERED: ZOLPIDEM TARTRATE 12.5 MG PO PRN (18:08)
[2021-05-27] MEDS ORDERED: ZOLPIDEM 5 MG TABLET PO PRN (21:00)
[2021-05-27] MEDS ORDERED: PRAZOSIN 1 MG CAPSULE PO SCH (21:00)
[2021-05-27] MEDS ORDERED: traZODone 50 MG TABLET PO PRN (21:00)
[2021-05-27 22:55] LABS: HCG UR QUAL NEGATIVE
[2021-05-28] MEDS: LACTATED RINGERS 1,000 ML IV SCH (00:05)
[2021-05-28] MEDS: clonazePAM 0.5 MG TABLET PO PRN ×2 (00:05→15:16)
[2021-05-28] MEDS: SODIUM CHLORIDE FLUSH 0.9% 10 ML SYRINGE IVP SCH ×2 (00:06→17:11)
[2021-05-28] MEDS: ONDANSETRON 4 MG/2 ML VIAL IVP PRN (00:21)
[2021-05-28] MEDS: HYDROmorphone 1 MG/ML CARPUJECT IVP PRN ×3 (02:32→14:20)
[2021-05-28] MEDS: oxyCODONE 5 MG TABLET PO PRN ×2 (04:29→12:19)
[2021-05-28 05:15] LABS: BASOPHILS % (AUTO) 0.3 %; EOSINOPHILS % (AUTO) 0.3 %; HCT - HEMATOCRIT 37.8 % (37.0-47.0); HGB - HEMOGLOBIN 12.1 g/dL (12.0-16.0); LYMPHOCYTES # (AUTO) 1.6 10^3/uL (1.5-3.5); MEAN CORPUSCULAR HEMOGLOBIN 30.6 pg (27.0-31.0); MEAN CORPUSCULAR VOLUME 95.5 fL (81.0-99.0); MEAN PLATELET VOLUME 8.2 fL (7.9-10.8); MONOCYTES # (AUTO) 0.8 10^3/uL (0.0-1.0); MONOCYTES % (AUTO) 8.2 %; NEUTROPHILS # (AUTO) 7.4 10^3/uL (1.5-6.6); NEUTROPHILS % (AUTO) 74.7 %; PLT - PLATELET COUNT 225 10^3/uL (130-450); RED BLOOD COUNT 3.96 10^6/uL (4.20-5.40); RED CELL DISTRIBUTION WIDTH 12.9 % (12.0-15.0); WHITE BLOOD COUNT 9.9 x10^3/uL (4.8-10.8)
[2021-05-28 05:31] LABS: ALBUMIN 3.8 g/dL (3.2-5.5); ALBUMIN/GLOBULIN RATIO 1.4 (1.0-2.2); BILIRUBIN,TOTAL 1.1 mg/dL (0.2-1.0); CALCIUM 8.7 mg/dL (8.5-10.3); CREATININE 0.5 mg/dL (0.4-1.0); POTASSIUM 3.9 mmol/L (3.5-5.0); TOTAL PROTEIN 6.5 g/dL (6.7-8.2)
[2021-05-28] MEDS: LORazepam 2 MG/ML VIAL IVP PRN ×2 (06:12→09:51)
[2021-05-28] MEDS: PANTOPRAZOLE 40 MG TABLET PO SCH ×2 (06:12→17:11)
[2021-05-28] MEDS ORDERED: buPROPion XL 150 MG TABLET PO SCH (09:00)
[2021-05-28] MEDS ORDERED: CITALOPRAM 10 MG TABLET PO SCH (09:00)
--- NOTE | 2021-05-28 11:56 | XRAY Report ---
PROCEDURE: Chest 2 View X-Ray INDICATIONS: pulmonary contusion TECHNIQUE: 2 view(s) of the chest. COMPARISON: CT chest 05/27/2021 FINDINGS: Surgical changes and devices: None. Lungs and pleura: No pleural effusions or pneumothorax. Lungs are clear. Mediastinum: Mediastinal contours are normal. Heart size is normal. Bones and chest wall: No suspicious bony abnormalities. Soft tissues appear unremarkable. IMPRESSION: No acute pulmonary process. Reviewed by: Yamileth Doll MD on 05/28/2021 11:55 AM PDT Approved by: Yamileth Doll MD on 05/28/2021 11:55 AM PDT Station ID: [id number]
[2021-05-28] MEDS ORDERED: polyethylene glycoL 3350 17 GM PACKET PO SCH (13:00)
[2021-05-28] MEDS ORDERED: DOCUSATE SODIUM 250 MG CAPSULE PO SCH (13:00)
[2021-05-28] MEDS ORDERED: HYDROmorphone 0.5 MG/0.5 ML SYRINGE IVP PRN (14:19)
[2021-05-28] MEDS ORDERED: LORazepam 2 MG/ML VIAL IVP PRN (14:20)
--- NOTE | 2021-05-28 15:23 | PROVIDER PROGRESS NOTE ---
Subjective - General Admit Date: 05/28/21 - Review of Systems General: positive: No symptoms HEENT: positive: No symptoms Pulmonary: positive: Other (complains of chest pain - primarily the left side) Objective - Patient Data Vital Signs: Vital Signs x48h Temp Pulse Resp BP Pulse Ox 05/28/21 15:00 97 16 117/73 94 05/28/21 14:00 97 17 113/72 94 05/28/21 13:00 37.1 C 100 17 112/73 96 05/28/21 11:00 98 15 111/77 94 05/28/21 10:00 103 H 14 117/81 H 95 05/28/21 09:00 36.6 C 99 14 115/84 H 95 05/28/21 08:00 111 H 94 H 125/87 H Weight: Weight 05/26/21 05/27/21 05/28/21 23:59 23:59 23:59 Weight (kg) 72.5 kg 73.5 kg Intake & Output: Intake and Output Totals x24h 05/26/21 05/27/21 05/28/21 23:59 23:59 23:59 Intake Total 3650 905 Output Total 300 1350 Balance 3350 -445 - Lab Results Lab Results: 05/28/21 04:59 05/28/21 04:59 Other Lab Results: Lab Results x24hrs 05/28/21 05/28/21 05/27/21 Range/Units 04:59 04:59 17:38 WBC 9.9 (4.8-10.8) x10^3/uL RBC 3.96 L (4.20-5.40) 10^6/uL Hgb 12.1 (12.0-16.0) g/dL Hct 37.8 (37.0-47.0) % MCV 95.5 (81.0-99.0) fL MCH 30.6 (27.0-31.0) pg MCHC 32.0 (32.0-36.0) g/dL RDW 12.9 (12.0-15.0) % Plt Count 225 (130-450) 10^3/uL MPV 8.2 (7.9-10.8) fL Neut # (Auto) 7.4 H (1.5-6.6) 10^3/uL Lymph # (Auto) 1.6 (1.5-3.5) 10^3/uL [place] # (Auto) 0.8 (0.0-1.0) 10^3/uL Eos # (Auto) 0.0 (0.0-0.7) 10^3/uL Baso # (Auto) 0.0 (0.0-0.1) 10^3/uL Absolute Nucleated RBC 0.00 x10^3/uL Nucleated RBC % 0.0 /100WBC Sodium 134 L (135-145) mmol/L Potassium 3.9 (3.5-5.0) mmol/L Chloride 94 L (101-111) mmol/L Carbon Dioxide 29 (21-32) mmol/L Anion Gap 11.0 (6-13) BUN 15 (6-20) mg/dL Creatinine 0.5 (0.4-1.0) mg/dL Estimated GFR (MDRD) 140 (>89) Glucose 111 H (70-100) mg/dL POC Whole Bld Glucose (70 - 100) mg/dL Calcium 8.7 (8.5-10.3) mg/dL Total Bilirubin 1.1 H (0.2-1.0) mg/dL AST 26 (10-42) IU/L ALT 24 (10-60) IU/L Alkaline Phosphatase 56 (42-121) IU/L Total Protein 6.5 L (6.7-8.2) g/dL Albumin 3.8 (3.2-5.5) g/dL Globulin 2.7 (2.1-4.2) g/dL Albumin/Globulin Ratio 1.4 (1.0-2.2) Urine HCG, Qual Nasal Screen MRSA (PCR) NEGATIVE (NEGATIVE) Blood Type Recheck 05/27/21 05/27/21 05/27/21 Range/Units 16:50 16:33 12:57 WBC (4.8-10.8) x10^3/uL RBC (4.20-5.40) 10^6/uL Hgb (12.0-16.0) g/dL Hct (37.0-47.0) % MCV (81.0-99.0) fL MCH (27.0-31.0) pg MCHC (32.0-36.0) g/dL RDW (12.0-15.0) % Plt Count (130-450) 10^3/uL MPV (7.9-10.8) fL Neut # (Auto) (1.5-6.6) 10^3/uL Lymph # (Auto) (1.5-3.5) 10^3/uL [place] # (Auto) (0.0-1.0) 10^3/uL Eos # (Auto) (0.0-0.7) 10^3/uL Baso # (Auto) (0.0-0.1) 10^3/uL Absolute Nucleated RBC x10^3/uL Nucleated RBC % /100WBC Sodium (135-145) mmol/L Potassium (3.5-5.0) mmol/L Chloride (101-111) mmol/L Carbon Dioxide (21-32) mmol/L Anion Gap (6-13) BUN (6-20) mg/dL Creatinine (0.4-1.0) mg/dL Estimated GFR (MDRD) (>89) Glucose (70-100) mg/dL POC Whole Bld Glucose 91 77 (70 - 100) mg/dL Calcium (8.5-10.3) mg/dL Total Bilirubin (0.2-1.0) mg/dL AST (10-42) IU/L ALT (10-60) IU/L Alkaline Phosphatase (42-121) IU/L Total Protein (6.7-8.2) g/dL Albumin (3.2-5.5) g/dL Globulin (2.1-4.2) g/dL Albumin/Globulin Ratio (1.0-2.2) Urine HCG, Qual NEGATIVE Nasal Screen MRSA (PCR) (NEGATIVE) Blood Type Recheck 05/27/21 Range/Units 04:59 WBC (4.8-10.8) x10^3/uL RBC (4.20-5.40) 10^6/uL Hgb (12.0-16.0) g/dL Hct (37.0-47.0) % MCV (81.0-99.0) fL MCH (27.0-31.0) pg MCHC (32.0-36.0) g/dL RDW (12.0-15.0) % Plt Count (130-450) 10^3/uL MPV (7.9-10.8) fL Neut # (Auto) (1.5-6.6) 10^3/uL Lymph # (Auto) (1.5-3.5) 10^3/uL [place] # (Auto) (0.0-1.0) 10^3/uL Eos # (Auto) (0.0-0.7) 10^3/uL Baso # (Auto) (0.0-0.1) 10^3/uL Absolute Nucleated RBC x10^3/uL Nucleated RBC % /100WBC Sodium (135-145) mmol/L Potassium (3.5-5.0) mmol/L Chloride (101-111) mmol/L Carbon Dioxide (21-32) mmol/L Anion Gap (6-13) BUN (6-20) mg/dL Creatinine (0.4-1.0) mg/dL Estimated GFR (MDRD) (>89) Glucose (70-100) mg/dL POC Whole Bld Glucose (70 - 100) mg/dL Calcium (8.5-10.3) mg/dL Total Bilirubin (0.2-1.0) mg/dL AST (10-42) IU/L ALT (10-60) IU/L Alkaline Phosphatase (42-121) IU/L Total Protein (6.7-8.2) g/dL Albumin (3.2-5.5) g/dL Globulin (2.1-4.2) g/dL Albumin/Globulin Ratio (1.0-2.2) Urine HCG, Qual Nasal Screen MRSA (PCR) (NEGATIVE) Blood Type Recheck A POSITIVE - Current Medications Current Medications: Current Medications Generic Name Dose Route Start Last Admin Trade Name Freq PRN Reason Stop Dose Admin Bupropion HCl 150 mg 05/28/21 09:00 05/28/21 09:51 Bupropion Xl 150 Mg Tablet PO 150 mg DAILY BRIE Administration Citalopram Hydrobromide 30 mg 05/28/21 09:00 05/28/21 09:51 Citalopram 10 Mg Tablet PO 30 mg DAILY BRIE Administration Clonazepam 0.5 mg 05/27/21 18:08 05/28/21 15:16 Clonazepam 0.5 Mg Tablet PO 0.5 mg QPM PRN Administration Anxiety Lactated Ringer's 1,000 mls @ 100 mls/hr 05/27/21 13:00 05/28/21 00:05 Lr IV 100 mls/hr .Q10H BRIE Administration Acetaminophen 100 mls @ 400 mls/hr 05/27/21 12:33 05/27/21 22:58 Ofirmev IV Infused Q6HR PRN Infusion PAIN Lorazepam 1 mg 05/28/21 14:20 05/28/21 15:17 Lorazepam 2 Mg/Ml Vial IVP 1 mg Q4H PRN Administration Anxiety Ondansetron HCl 4 mg 05/27/21 12:27 05/28/21 00:21 Ondansetron 4 Mg/2 Ml Vial IVP 4 mg Q6HR PRN Administration Nausea / Vomiting Oxycodone HCl 5 mg 05/27/21 12:27 05/28/21 12:19 Oxycodone 5 Mg Tablet PO 5 mg Q4HR PRN Administration Pain 5 to 7 Pantoprazole Sodium 40 mg 05/27/21 16:00 05/28/21 06:12 Pantoprazole 40 Mg Tablet PO 40 mg BIDAC BRIE Administration Prazosin HCl 7 mg 05/27/21 21:00 05/27/21 20:07 Prazosin 1 Mg Capsule PO 7 mg QPM BRIE Administration Sodium Chloride 10 ml 05/27/21 17:00 05/28/21 00:06 Sodium Chloride Flush 0.9% 10 Ml Syringe IVP 10 ml 0100,0900,1700 BRIE Administration Sodium Chloride 10 ml 05/27/21 12:27 05/28/21 15:18 Sodium Chloride Flush 0.9% 10 Ml Syringe IVP 10 ml PRN PRN Administration NEEDED PER PROVIDER ORDERS
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
--- NOTE | 2021-05-28 16:52 | Discharge Plan ---
Discharge Plan Problem Reviewed?: Yes Disposition: Home, Self Care Condition: Stable Prescriptions: oxyCODONE [Roxicodone] 5 mg PO Q4HR PRN #20 tablet PRN Reason: Chest Pain tiZANidine [Zanaflex] 4 mg PO Q8H PRN #30 tablet PRN Reason: Spasms Diet: Regular Activity Restrictions: Additional Comments (No lifting or strenous exercise x 7 days) Shower Restrictions: No Driving Restrictions: Yes (Not while using pain medications) No Smoking: If you smoke, Please STOP! Call for help. Follow-up with: Alonzo Spann MD [Provider Admit Priv/Credential] -
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
[2021-05-28 17:52] VITALS: BP 113/98
== END 2021-05-28 18:00 | disposition home or self-care (01) ==
LOC: ED 09:14 → MS2 12:27 → INTOOBSV 12:27 → UNDOADMOB 12:27 → MS2 15:24 → ICU 15:24
PROVIDERS: ADMIT Surgery; ATTEND Surgery
DX: S13.4XXA Sprain of ligaments of cervical spine, initial encounter (principal); R07.9 Chest pain, unspecified; V43.52XA Car driver injured in collision with other type car in traffic accident, initial encounter; Y92.413 State road as the place of occurrence of the external cause; G89.29 Other chronic pain; M54.9 Dorsalgia, unspecified; F32.9 Major depressive disorder, single episode, unspecified; F41.9 Anxiety disorder, unspecified; Z79.899 Other long term (current) drug therapy
CPT/HCPCS: 0202U; 36415; 70450; 71046; 71260; 72125; 72141; 72170; 74177; 80053; 80306; 81001; 81025; 83690; 85025; 85610; 86850; 86900; 86901; 87150; 93005; 96374; 96375; 96376; 99285; A9270; G0378; J0131; J1170; J2060; J7120; Q9967; 81003; 87086